=== PATIENT | male | born 1960 | race Caucasian/White ===

== ENCOUNTER 2021-03-23 09:12 | Inpatient (IN) ==
--- NOTE | 2021-03-06 09:56 | PAT Medication Instructions ---
Medication Instructions Date of Service March 06, 2021 Home Medications ascorbic acid (vitamin C) [Vitamin C] 500 mg PO QAM calcium citrate-vitamin D3 [Calcium Citrate + D] 1 tab PO QAM cholecalciferol (vitamin D3) [Vitamin D3] 50 mcg PO QAM ibuprofen 200 mg PO Q6H PRN multivitamin 1 tab PO QAM saw palmetto 450 mg PO QAM vitamin B complex 1 cap PO QAM zinc 50 mg PO QAM ASK your surgeon for instructions ibuprofen 200 mg PO Q6H PRN STOP taking 2 weeks before surgery (or as soon as possible if surgery is within 2 weeks) saw palmetto 450 mg PO QAM DO NOT take the morning of surgery ascorbic acid (vitamin C) [Vitamin C] 500 mg PO QAM calcium citrate-vitamin D3 [Calcium Citrate + D] 1 tab PO QAM cholecalciferol (vitamin D3) [Vitamin D3] 50 mcg PO QAM multivitamin 1 tab PO QAM vitamin B complex 1 cap PO QAM zinc 50 mg PO QAM Other Notes If you have any questions please call us at [phone] or [phone] or [phone] or [phone]
--- NOTE | 2021-03-10 11:11 | Anesthesiology Consultation ---
Date of Service March 10, 2021 Assessment & Plan (1) Encounter for pre-operative examination: - COVID screening: Per assessment on 03/10: Travel screen negative, no known COVID-19 positive contacts or current COVID-19 related symptoms. Patient vaccinated. Surgeon arranging preop COVID testing. Awaiting results. - Positioning: Patient reports significant congestion when laying in prone position and requests caution with positioning and/or pre-op preventative management of congestion when/if possible. Chart Review Chart Review: Acceptable Risk for Surgery and Patient seen in Pre Admission Testing Teaching & Discussion Pre-Anesthesia Teaching/Discussion Notes: Instructed NPO after midnight before surgery,except medications with 15 cc of water. Medication instructions provided according to the PAT guidelines. History Surgery Operation Date: 03/23/21 07:45 Proposed Procedures p L4-L5 Decompression Fusion, Spinal Cord Monitoring - Lanre Hutchinson DO Height/Weight Height: 5 ft 10.5 in Weight: 112.1 kg Allergies Allergy/AdvReac Type Severity Reaction Status Date / Time amoxicillin Allergy Rash Verified 03/06/21 09:03 Iodinated Contrast Media Allergy Hives, Verified 03/06/21 12:07 nausea shellfish derived Allergy Hives, Verified 03/06/21 12:07 nausea Medications Home Medications Medication Instructions Recorded Confirmed Last Taken ascorbic acid (vitamin C) [Vitamin 500 mg PO QAM 03/06/21 03/06/21 Unknown C] calcium citrate-vitamin D3 1 tab PO QAM 03/06/21 03/06/21 Unknown [Calcium Citrate + D] cholecalciferol (vitamin D3) 50 mcg PO QAM 03/06/21 03/06/21 Unknown [Vitamin D3] ibuprofen 200 mg PO Q6H PRN 03/06/21 03/06/21 Unknown multivitamin 1 tab PO QAM 03/06/21 03/06/21 Unknown saw palmetto 450 mg PO QAM 03/06/21 03/06/21 Unknown vitamin B complex 1 cap PO QAM 03/06/21 03/06/21 Unknown zinc 50 mg PO QAM 03/06/21 03/06/21 Unknown Past Medical History Medical History Alternating constipation and diarrhea Borderline hyperlipidemia BPH (benign prostatic hyperplasia) DDD (degenerative disc disease) History of gastroesophageal reflux (GERD) "Resolved" following gastric bypass surgery History of vertigo Obesity Osteoarthritis Sleep apnea hx; S/P UPPP; no device Spinal stenosis Tinnitus Exercise / Class Metabolic Activity II 4-5 Yardwork/Stairs/Walk up hill Past Family History Family History Other No family history of adverse response to anesthesia Past Surgical History Surgical History History of cardiac catheterization 1998 > no stents/angioplasty History of carpal tunnel surgery R/L History of cholecystectomy History of colonoscopy History of esophagogastroduodenoscopy (EGD) History of gastric bypass History of lumbar surgery History of nasal surgery History of tonsillectomy History of uvulopalatopharyngoplasty Past Anesthesia History No Family Hx of Anesthesia Complications and Other ("slow to wake" remotely 25 years ago) History of PONV No Hx of PONV and Hx of Motion Sickness Social History Smoking Status: Never smoker Do You Dip or Chew Tobacco: No Hx Alcohol Use: Yes Alcohol type: beer alcohol intake frequency: a few times a month Hx Substance Use: No substance use type: does not use Review of Systems Patient denies chest pain, shortness of breath, dyspnea on exertion, fever, chills, cough, wheezing, palpitations. Physical Exam Vital Signs VITALS BP 132/80 P 56 TEMP 98.6 SP02 98%RA RESP 18 PHYSICAL Full cervical extension range of motion. Full TMJ range of motion. TMD 4 finger breaths Mallampati Score 3 Dentition: missing (molars) Lungs: clear throughout to auscultation Cardiac: regular rate and rhythm, no murmurs noted Spine: normal Carotid arteries: negative bruit Extremities: no edema Trimmed maldonado Lab Results Anesthesia Preop Results Results Anesthesia Widget: WBC 7.38 K/uL (4.8-10.8) 03/10/21 Hgb 15.6 g/dL (14.0-18.0) 03/10/21 Hct 45.5 % (42-52) 03/10/21 Plt 245 K/uL (130-400) 03/10/21 Na 139 mmol/L (136-145) 03/10/21 K 4.6 mmol/L (3.5-5.1) 03/10/21 Cl 107 mmol/L (98-107) 03/10/21 CO2 29 mmol/L (21-32) 03/10/21 BUN 13 mg/dl (7-18) 03/10/21 Creat 0.93 mg/dl (0.6-1.4) 03/10/21 Glucose Level 91 mg/dl (70-99) 03/10/21 PT 10.3 Seconds (9.0-12.0) 03/10/21 PTT 23.9 Seconds (21.0-31.0) 03/10/21 INR 1.0 (0.9-1.1) 03/10/21 Urine Color Yellow 03/10/21 Urine Appearance Clear (Clear) 03/10/21 Urine pH 5.0 (4.5-7.5) 03/10/21 Urine Specific [place] 1.010 (1.000-1.030) 03/10/21 Urine Protein Negative (Negative) 03/10/21 Urine Glucose (UA) Negative (Negative) 03/10/21 Urine Ketones Negative (Negative) 03/10/21 Urine Blood Negative (Negative) 03/10/21 Urine Nitrite Negative (Negative) 03/10/21 Urine Bilirubin Negative (Negative) 03/10/21 Urine Urobilinogen Negative (Negative) 03/10/21 Urine Leukocyte Esterase Negative (Negative) 03/10/21 Blood Type O Positive 03/10/21 Antibody Screen NEGATIVE 03/10/21 Testing Electrocardiogram Date: 03/10/21 SB at 56bpm. Otherwise normal ECG. unconfirmed report. Chest X-Ray Date: 03/10/21 FINDINGS: Cardiac mediastinal and hilar silhouettes are within normal limits. No pneumothorax, pleural effusion, airspace consolidation or overt pulmonary edema. Surgical clips of the upper abdomen. The bones of the chest appear grossly intact. Degenerative changes are noted involving the shoulders. IMPRESSION: No acute process.
[~2021-03-23 09:12] MED LIST: ACETAMINOPHEN 500 MG TAB PO SCH; CLINDAMYCIN 600 MG/54 ML BAG IV SCH; CeleBREX 200 MG CAP PO SCH; GABAPENTIN 600 MG DOSE PO SCH; LR 15ML/HR IV SCH
[2021-03-23] MEDS ORDERED: MIDAZOLAM HCL 1 MG/ML 2ML VIAL ONE (10:28)
[2021-03-23] MEDS ORDERED: fentaNYL citrate 100 MCG/2 ML VIAL ONE (10:28)
--- NOTE | 2021-03-23 10:42 | History & Physical Bridge Note ---
Date of Service March 23, 2021 History & Physical Bridge Note I have examined the patient, reviewed the History & Physical and in the interval since the performance of the History & Physical I have noted the following changes of clinical significance: no changes noted
--- NOTE | 2021-03-23 10:43 | History & Physical Report ---
Date of Service March 23, 2021 Assessment & Plan (1) Neurogenic claudication due to lumbar spinal stenosis: Plan: L4-5 decompression fusion History of Present Illness Chief Complaint: Back and leg pain Primary Care Provider: Lance Hinton MD This is a 60-year-old male who presents with chronic persistent back and leg pain. After failing course of nonoperative care is here for surgical invention. Allergies Allergy/AdvReac Type Severity Reaction Status Date / Time amoxicillin Allergy Rash Verified 03/23/21 09:31 Iodinated Contrast Media Allergy Hives, Verified 03/23/21 09:31 nausea shellfish derived Allergy Hives, Verified 03/23/21 09:31 nausea Home Medications Medication Instructions Recorded Confirmed Type ascorbic acid (vitamin C) 500 mg 500 mg PO QAM 03/06/21 03/23/21 History chewable tablet (Vitamin C) calcium citrate 315 mg-vitamin D3 1 tab PO QAM 03/06/21 03/23/21 History 5 mcg (200 unit) tablet (Calcium Citrate + D) cholecalciferol (vitamin D3) 50 50 mcg PO QAM 03/06/21 03/23/21 History mcg (2,000 unit) capsule (Vitamin D3) ibuprofen 200 mg tablet 200 mg PO Q6H PRN 03/06/21 03/23/21 History multivitamin 1 tab PO QAM 03/06/21 03/23/21 History saw palmetto 450 mg capsule 450 mg PO QAM 03/06/21 03/23/21 History vitamin B complex 1 cap PO QAM 03/06/21 03/23/21 History zinc 50 mg tablet 50 mg PO QAM 03/06/21 03/23/21 History Past Med/Surg History Medical History Alternating constipation and diarrhea Borderline hyperlipidemia BPH (benign prostatic hyperplasia) DDD (degenerative disc disease) History of gastroesophageal reflux (GERD) "Resolved" following gastric bypass surgery History of vertigo Obesity Osteoarthritis Sleep apnea hx; S/P UPPP; no device Spinal stenosis Tinnitus Surgical History History of cardiac catheterization 1998 > no stents/angioplasty History of carpal tunnel surgery R/L History of cholecystectomy History of colonoscopy History of esophagogastroduodenoscopy (EGD) History of gastric bypass History of lumbar surgery History of nasal surgery History of tonsillectomy History of uvulopalatopharyngoplasty Family History Other No family history of adverse response to anesthesia Social History Smoking Status: Never smoker Second Hand Exposure: No; Do You Dip or Chew Tobacco: No; Hx Alcohol Use: Yes Alcohol type: beer Hx Substance Use: No Preferred Language: Eritrean Communication Ability: Effective Comptometrist Required: No Beliefs That Will Affect Care: None Current Living Situation: Spouse Feels Safe at Home: Yes Safety Concerns: Feels Safe At This Time Assistive Devices: Glasses Physical Exam Physical Exam: Patient is alert and oriented Heart regular rhythm Lungs clear to auscultation Results & Data ([facility]) Vital Signs (Past 12 Hours) Vital Signs Temp Pulse Resp BP Pulse Ox 03/23/21 09:38 36.9 C 69 18 150/85 H 95
[2021-03-23] MEDS ORDERED: BUPIVACAINE/EPINEPHRINE 0.5% MPF 1:200,000 30 ML VIAL ONE (10:51)
[2021-03-23] MEDS ORDERED: ePHEDrine sulfate 50 MG/ML AMP IV PRN (11:31)
[2021-03-23] MEDS ORDERED: ONDANSETRON INJ 2 MG/ML 2 ML VIAL IV PRN ×2 (11:31→16:17)
[2021-03-23] MEDS ORDERED: ATROPINE SULFATE 0.1 MG/ML 10ML SYR IV PRN (11:31)
[2021-03-23] MEDS ORDERED: fentaNYL citrate 100 MCG/2 ML VIAL IV PRN (11:31)
[2021-03-23] MEDS ORDERED: PROPOFOL IV EMULSION 10 MG/ML 20 ML VIAL IV ONE (11:45)
[2021-03-23] MEDS ORDERED: ePHEDrine sulfate 50 MG/ML SYR ONE (11:46)
[2021-03-23] MEDS ORDERED: LIDOCAINE 2% 2 ML VIAL/AMP(20MG/ML) INFIL ONE (11:46)
[2021-03-23] MEDS ORDERED: ONDANSETRON INJ 2 MG/ML 2 ML VIAL ONE (11:46)
[2021-03-23] MEDS ORDERED: ROCURONIUM BROMIDE 10 MG/ML 5 ML VIAL IV ONE ×2 (11:46→12:16)
[2021-03-23] MEDS ORDERED: DEXAMETHASONE SOD INJ 4 MG/ML VIAL ONE (11:46)
[2021-03-23] MEDS ORDERED: FLOSEAL HEMOSTATIC MATRIX 10ML TOP ONE (11:59)
[2021-03-23] MEDS ORDERED: HYDROmorphone INJ 2 MG/ML SYR/VIAL ONE (12:24)
--- NOTE | 2021-03-23 12:49 | Operative Report ---
Post Operative Report Pre & Post Diagnosis Operation Date: 03/23/21 11:05 Pre-Op Diagnosis: Spinal Stenosis, Lumbar Region with Neurogenic Claudication Post-Op Diagnosis: Spinal Stenosis, Lumbar Region with Neurogenic Claudication I identified the patient and participated in the time-out.: Yes Procedure Operation Date: 03/23/21 11:05 Actual Procedures #1 lumbar compression with bilateral medial facetectomies and foraminotomies L3- 4 and L4-5. #2 posterior spinal fusion L4-L5. #3 placed posterior instrumentation L4-5. #4 interbody fusion L4-5. #5 placement peek cage 13 x 26 mm at L4-5. #6 placement locally harvested morselized autograft in the posterior lateral gutters. #7 placement of I factor combined with the Vitoss interbody space and posterior lateral gutters. Surgeon Lanre Hutchinson, DO Product Applications Scientist Gladys Jimenez Estimated Blood Loss 100 Findings See Below The patient is 5 foot 10 inches tall weighing over 112 kg with a BMI 35. Patient's body habitus did contribute to significant technical difficulty requiring her deepest retractors longus instruments in order to perform his procedure. This had at least 25% increase to the operative time. Specimens None Indications This is a 60-year-old male who presents above-mentioned diagnosis after failing course of nonoperative care is here for the above-mentioned procedure. Description of Procedure Patient was met with identified informed consent obtained. Patient was then taken to the operative suite underwent a patient placed in a prone position the Trinity abdominal spine frame. All bony prominences well-padded eyes inspected to ensure no external pressure placed upon the. This point the lumbar spine was prepped and draped in a sterile fashion. Sharp dissection with the assistance of Bovie cautery from down to and exposing the lamina and transverse processes of L4 and L5 bilaterally. From caudal cephalad fashion complete laminectomy L4 partial laminectomy L3 is performed including bilateral medial facetectomies and foraminotomies addressing severe spinal stenosis. Pedicle screws were placed in L4-L5 bilaterally with assistance of fluoroscopy and process homer placed. Bilateral transforamen approach on right a complete discectomy was performed endplates curetted to subcortical bleeding bone and a 13 x 26 mm peek cage filled with I factor tapped in position. The rods were then locked in final position bilaterally. The transverse processes of L4-5 burred to subcortically bone. I factor combined with Vitoss placed in the posterior gutters with locally harvested morselized autograft. 15 round GAB drain inserted. The incision was then closed with 1 Vicryl fascia 2-0 Vicryl subcutaneously and 4 Monocryl for final skin closure. Steri-Strip sterile dressings placed. Patient will continue PACU stable condition. Please note spinal cord monitoring was utilized at the procedure no changes noted. Lastly Gladys Jimenez was present at the entire procedure and all the patient positioning complex portions of the surgery and final skin closure. I attest to the content of the Intraoperative Record and any orders documented therein. Any exceptions are noted below.
--- NOTE | 2021-03-23 13:00 | Fluoroscopy Report ---
FL lumbar spine 2-3V CLINICAL HISTORY: L4-L5 DECOMPRESSION AND FUSION COMPARISON STUDY: None. FLUOROSCOPY TIME: 17 seconds. FLUOROSCOPIC IMAGES: 2 FINDINGS: Fluoroscopy was provided during L4-L5 discectomy, posterior decompression bilateral pedicle screw fusion. Hardware is intact. There are no unexpected radiopaque foreign bodies. IMPRESSION: Fluoroscopy provided during L4-L5 discectomy, posterior decompression and bilateral pedi malia screw fusion. ACT 112: Negative or not required by law. Electronically signed by: Dionicio Corona M.D. 03/23/2021 12:59 PM
--- NOTE | 2021-03-23 14:12 | Anesthesiology Progress Note ---
Date of Service March 23, 2021 Anesthesia Post Procedure Vital Signs Vital Signs: Temp Pulse Pulse Resp BP Pulse Ox 03/23/21 14:00 61 12 136/74 98 03/23/21 13:45 71 12 148/80 H 96 03/23/21 13:40 36.7 C 61 16 147/81 H 97 03/23/21 13:30 74 19 157/93 H 99 03/23/21 13:20 75 15 150/79 H 99 03/23/21 13:10 63 12 142/72 H 100 03/23/21 13:01 36.7 C 81 16 136/81 99 03/23/21 09:38 36.9 C 69 18 150/85 H 95 Pain Intensity Lower Back: Pain Intensity: 5 Transfer of Care Handoff Completed per policy Notes Mental Status: alert / awake / arousable and participated in evaluation Patient Amnestic to Procedure: Yes Nausea / Vomiting: adequately controlled Pain: adequately controlled Airway Patency, RR, SpO2: stable & adequate BP & HR: stable & adequate Hydration State: stable & adequate Anesthetic Complications: no major complications apparent and Pt Satisfied with anesthetic care
[2021-03-23] MEDS ORDERED: DO NOT ADMINISTER PNEUMOCOCCAL VACCINE PRN (16:17)
[2021-03-23] MEDS ORDERED: LORazepam 0.5 MG TAB PO PRN (16:17)
[2021-03-23] MEDS ORDERED: traMADol HCL 50 MG TABLET PO PRN (16:17)
[2021-03-23] MEDS ORDERED: ACETAMINOPHEN 1,000 MG/100 ML VIAL IV PRN (16:17)
[2021-03-23] MEDS ORDERED: hydrOXYzine HCl 25 MG TAB PO PRN (16:17)
[2021-03-23] MEDS ORDERED: HYDROmorphone INJ 0.5 MG/0.5 ML SYR IV PRN (16:17)
[2021-03-23] MEDS ORDERED: ALUMINUM/MAGNESIUM SUSP 30 ML UDC PO PRN (16:17)
[2021-03-23] MEDS ORDERED: NALOXONE HCL 0.4 MG/1 ML VIAL/CARP IV PRN (16:17)
[2021-03-23] MEDS ORDERED: MAGNESIUM HYDROXIDE SUSP 30 ML UDC PO PRN (16:17)
[2021-03-23] MEDS ORDERED: ONDANSETRON 4 MG OD TAB PO PRN (16:17)
[2021-03-23] MEDS ORDERED: PROMETHAZINE HCL 12.5 MG in SODIUM CHLORIDE 0.9% 50 ML IV PRN (16:17)
[2021-03-23] MEDS ORDERED: FAMOTIDINE 20 MG TAB PO PRN (16:17)
[2021-03-23] MEDS ORDERED: oxyCODONE HCL IR 5 MG TAB (IMMEDIATE RELEASE) PO PRN (16:17)
[2021-03-23] MEDS ORDERED: SOD PHOSPHATE/SOD BIPHOSPHATE ENEMA 132 ML BTL PR PRN (16:17)
[2021-03-23] MEDS ORDERED: METOCLOPRAMIDE HCL INJ 5 MG/ML 2 ML VIAL IV PRN (16:17)
[2021-03-23] MEDS ORDERED: diphenhydrAMINE Capsule 25 MG CAP PO PRN (16:17)
[2021-03-23] MEDS ORDERED: HYDROmorphone INJ 1 MG/ML SYRINGE IV PRN (16:17)
[2021-03-23] MEDS ORDERED: LORazepam 0.5 MG/1 ML VIAL IV PRN (16:17)
[2021-03-23] MEDS ORDERED: DO NOT ADMINISTER FLU VACCINE PRN (16:17)
[2021-03-23] MEDS: LACTATED RINGER'S 1,000 ML IV SCH ×2 (16:53→23:43)
--- NOTE | 2021-03-23 17:04 | Internal Medicine Consult Note ---
Date of Consultation March 23, 2021 Assessment & Plan (1) Neurogenic claudication due to lumbar spinal stenosis: (2) Lumbosacral radiculopathy at L5: (3) History of obstructive sleep apnea: (4) History of gastroesophageal reflux (GERD): (5) History of obesity: Resume Post Op Care per Surgery Protocol Incentive Spirometry 10x per Hour Resume Relative Home Meds Where Appropriate PT/OT with appropriate fall precautions Transition from IV to PO Pain control DVT Prophylaxis Per Surgery Protocol Monitor Daily Labs History of Present Illness Reason for Consultation: Medical management Requesting Physician: Dr. Iván Hutchinson Attending Physician: Lanre Hutchinson, DO History of Present Illness 60-year-old male with a past medical history of Gastrosoft reflux disease, obstructive sleep apnea, obesity, and spinal stenosis started seeing Dr. Hutchinson about a year ago for low back pain. Some of the back pain was jabbing sometimes it would run down his leg and occasionally run down the right side of his right leg and into the back of his knee and sometimes down into his toes and into his foot. More recently has been getting really severe numbness and pain in his right foot and down the right side of his leg. He saw Dr. Hutchinson who recommended shots his family practice patient got an MRI and Dr. Hutchinson took him to the OR today. Patient had lumbar stenosis with neurogenic claudication and Dr. Hutchinson performed #1 lumbar compression with bilateral medial facetectomies and foraminotomies L3-4 and L4-5. #2 posterior spinal fusion L4-L5. #3 placed posterior instrumentation L4-5. #4 interbody fusion L4-5. #5 placement peek cage 13 x 26 mm at L4-5. #6 placement locally harvested morselized autograft in the posterior lateral gutters. #7 placement of I factor combined with the Vitoss interbody space and posterior lateral gutters. I saw the patient in his room he was resting comfortably pain-free. Allergies Allergy/AdvReac Type Severity Reaction Status Date / Time amoxicillin Allergy Rash Verified 03/23/21 09:31 Iodinated Contrast Media Allergy Hives, Verified 03/23/21 09:31 nausea shellfish derived Allergy Hives, Verified 03/23/21 09:31 nausea Home Medications Medication Instructions Recorded Confirmed Type ascorbic acid (vitamin C) 500 mg 500 mg PO QAM 03/06/21 03/23/21 History chewable tablet (Vitamin C) calcium citrate 315 mg-vitamin D3 1 tab PO QAM 03/06/21 03/23/21 History 5 mcg (200 unit) tablet (Calcium Citrate + D) cholecalciferol (vitamin D3) 50 50 mcg PO QAM 03/06/21 03/23/21 History mcg (2,000 unit) capsule (Vitamin D3) ibuprofen 200 mg tablet 200 mg PO Q6H PRN 03/06/21 03/23/21 History multivitamin 1 tab PO QAM 03/06/21 03/23/21 History saw palmetto 450 mg capsule 450 mg PO QAM 03/06/21 03/23/21 History vitamin B complex 1 cap PO QAM 03/06/21 03/23/21 History zinc 50 mg tablet 50 mg PO QAM 03/06/21 03/23/21 History Patient History Medical History Alternating constipation and diarrhea Borderline hyperlipidemia BPH (benign prostatic hyperplasia) DDD (degenerative disc disease) History of gastroesophageal reflux (GERD) "Resolved" following gastric bypass surgery History of vertigo Obesity Osteoarthritis Sleep apnea hx; S/P UPPP; no device Spinal stenosis Tinnitus Surgical History History of cardiac catheterization 1998 > no stents/angioplasty History of carpal tunnel surgery R/L History of cholecystectomy History of colonoscopy History of esophagogastroduodenoscopy (EGD) History of gastric bypass History of lumbar surgery History of nasal surgery History of tonsillectomy History of uvulopalatopharyngoplasty Family History Other No family history of adverse response to anesthesia Social History Smoking Status: Never smoker Second Hand Exposure: No; Do You Dip or Chew Tobacco: No; Hx Alcohol Use: Yes Alcohol type: beer Hx Substance Use: No Preferred Language: Malagasy Communication Ability: Effective Mink Slicer Required: No Beliefs That Will Affect Care: None Current Living Situation: Spouse Feels Safe at Home: Yes Safety Concerns: Feels Safe At This Time Assistive Devices: Glasses Review of Systems Review of Systems: ROS-No Headache, No Visual Changes, No Nausea, No Vomiting, No Fever, No Chills, No Neck Pain or Stiffness, No Chest Pain, No Palpitations, No SOB, No TAYLOR, No Cough, No Sputum, No Wheezing, No Abdominal Pain, No Diarrhea, No Hematemesis, No Hemoptysis, No Unexpected Weight Loss, No Flank pain, No Melena, No Hematochezia, No Frequency, No Urgency, No Burning, No Hematuria, No Rashes, No Diaphoresis. Appetite is Normal Physical Exam Physical Exam: Physical Exam Gen-AAO x 3, NAD, Afebrile Head-NCAT, EOMI, PERRLA, Anicteric Sclera, No Posterior Pharyngeal Erythema Neck-Supple, No JVD, No Thyromegaly, No Masses, No LAD, No Bruits Lungs-Clear to Auscultation Bilaterally, No Rales, No Rhonchi, No Wheezing, No Crepitus Chest-No S4, +S1, +S2, No S3, No Murmurs, No Rubs, No Gallops, No Ectopy Abdomen-Soft, Bowel Sounds Present, Non Tender, Non Distended, No Hepatomegaly, No Splenomegaly, No Palpable Masses, No Rebound, No Rigidity, No Guarding Musculoskeletal-Full Range of Motion Bilaterally, No CVAT Extremities-No Cyanosis, No Clubbing, No Edema Nuero-Cranial Nerves II-XII grossly intact, Motor WNL, DTRs WNL, Strength WNL, Non Focal Psych-Normal Mood Results & Data ([facility]) Vital Signs (Past 12 Hours) Vital Signs Temp Pulse Pulse Resp BP BP Pulse Ox 03/23/21 16:19 73 18 128/72 98 03/23/21 15:45 36.5 C 77 18 128/73 99 03/23/21 15:15 36.5 C 72 18 130/77 99 03/23/21 15:00 37.2 C 74 20 128/76 98 03/23/21 14:45 57 L 14 132/85 99 03/23/21 14:30 62 12 146/77 H 99 03/23/21 14:15 72 20 157/99 H 100 03/23/21 14:00 61 12 136/74 98 03/23/21 13:45 71 12 148/80 H 96 03/23/21 13:40 36.7 C 61 16 147/81 H 97 03/23/21 13:30 74 19 157/93 H 99 03/23/21 13:20 75 15 150/79 H 99 03/23/21 13:10 63 12 142/72 H 100 03/23/21 13:01 36.7 C 81 16 136/81 99 03/23/21 09:38 36.9 C 69 18 150/85 H 95 Laboratory Results Pending Current Diagnoses Spinal stenosis, lumbar region with neurogenic claudication (03/23/21) Encounter for other preprocedural examination (03/23/21) Allergies amoxicillin Allergy (Verified 03/23/21 09:31) Rash Iodinated Contrast Media Allergy (Verified 03/23/21 09:31) Hives, nausea shellfish derived Allergy (Verified 03/23/21 09:31) Hives, nausea Height/Weight/Isolation Height 5 ft 10.5 in Weight 112.1 kg
[2021-03-23] MEDS: CLINDAMYCIN 600 MG in DEXTROSE 5% 50 ML IV SCH (18:00)
[2021-03-23] MEDS: KETOROLAC TROMETHAMINE 15 MG/ML VIAL IV SCH ×2 (18:01→23:43)
[2021-03-23] MEDS: DOCUSATE SODIUM/SENNA 50/8.6MG TAB PO SCH (21:54)
[2021-03-24] MEDS: CLINDAMYCIN 600 MG in DEXTROSE 5% 50 ML IV SCH (04:05)
[2021-03-24] MEDS: POLYETHYLENE (MIRALAX) 17 GM PACK PO SCH ×2 (05:05→13:06)
[2021-03-24] MEDS: KETOROLAC TROMETHAMINE 15 MG/ML VIAL IV SCH ×2 (05:06→13:06)
[2021-03-24 06:56] LABS: Eosinophils # (auto) 0.05 K/uL (0-0.5); Eosinophils % (auto) 0.4 %; Hematocrit (blood only) 38.3 % (42-52); Hemoglobin 13.3 g/dL (14.0-18.0); Immature Granulocytes # (auto) 0.03 K/uL (0.00-0.02); Immature Granulocytes % (auto) 0.2 %; Lymphocytes % (auto) 9.2 %; Mean Corpuscular Hemoglobin 31.7 pg (25-34); Mean Corpuscular Hgb Conc 34.7 g/dL (32-36); Mean Corpuscular Volume 91.2 fL (80-100); Mean Platelet Volume 9.1 fL (7.4-10.4); Monocytes # (auto) 1.16 K/uL (0.11-0.59); Monocytes % (auto) 8.9 %; Neutrophils # (auto) 10.59 K/uL (1.4-6.5); Neutrophils % (auto) 81.3 %; Platelet Count 199 K/uL (130-400); RDW Coefficient of Variation 12.4 % (11.5-14.5); RDW Standard Deviation 41.8 fL (36.4-46.3); White Blood Count 13.03 K/uL (4.8-10.8)
[2021-03-24 07:27] LABS: BUN Creatinine Ratio 22.5 (10-20); Calcium 8.1 mg/dl (8.5-10.1); Creatinine Clr Calc Pharmacy 142.1 ml/min; Est GFR (African American) 118.8 ml/min; Est GFR (Non-African American) 102.5 ml/min; Potassium 3.9 mmol/L (3.5-5.1)
--- NOTE | 2021-03-24 09:29 | Orthopedic Progress Note ---
Date of Service March 24, 2021 Assessment & Plan (1) Neurogenic claudication due to lumbar spinal stenosis: Plan: At this time continue physical therapy monitor his GAB operatively discharge home the next day or so. Admission and Anticipated Discharge Date Admission Date: March 23, 2021 Subjective Back pain controlled leg pain improved Physical Exam Physical Exam: Patient appears comfortable is good strength testing. Results & Data ([facility]) Vital Signs (Past 12 Hours) Vital Signs Temp Pulse Resp BP BP Pulse Ox 03/24/21 07:19 36.5 C 79 17 100/64 100/64 98 03/24/21 02:27 36.6 C 70 16 108/69 97 03/23/21 22:38 36.6 C 64 16 108/67 96
[2021-03-24] MEDS: CHOLECALCIFEROL 1,000 UNITS 25 MCG TAB PO SCH (10:35)
[2021-03-24] MEDS: VITAMIN B COMPLEX TAB PO SCH (10:35)
[2021-03-24] MEDS: ZINC SULFATE 220 MG CAPSULE PO SCH (10:35)
[2021-03-24] MEDS: MULTIVITAMIN TAB PO SCH (10:35)
[2021-03-24] MEDS: CALCIUM 600MG + VIT D 400 IU TAB PO SCH (10:36)
--- NOTE | 2021-03-24 11:31 | Hospitalist Progress Note ---
Date of Service March 24, 2021 Assessment & Plan (1) Neurogenic claudication due to lumbar spinal stenosis: (2) Lumbosacral radiculopathy at L5: (3) Postoperative anemia due to acute blood loss: (4) History of obstructive sleep apnea: (5) History of gastroesophageal reflux (GERD): (6) History of obesity: Plan: Resume Post Op Care per Surgery Protocol Incentive Spirometry 10x per Hour Resume Relative Home Meds Where Appropriate PT/OT Transition to PO Pain control DVT Prophylaxis Per Surgery Protocol Monitor Daily Labs Admission and Anticipated Discharge Date Admission Date: March 23, 2021 Review of Systems Review of Systems: ROS-No Headache, No Visual Changes, No Nausea, No Vomiting, No Fever, No Chills, No Neck Pain or Stiffness, No Chest Pain, No Palpitations, No SOB, No TAYLOR, No Cough, No Sputum, No Wheezing, No Abdominal Pain, No Diarrhea, No Hematemesis, No Hemoptysis, No Unexpected Weight Loss, No Flank pain, No Melena, No Hematochezia, No Frequency, No Urgency, No Burning, No Hematuria, No Rashes, No Diaphoresis. Appetite is Normal Physical Exam Physical Exam: Physical Exam Gen-AAO x 3, NAD, Afebrile Head-NCAT, EOMI, PERRLA, Anicteric Sclera, No Posterior Pharyngeal Erythema Neck-Supple, No JVD, No Thyromegaly, No Masses, No LAD, No Bruits Lungs-Clear to Auscultation Bilaterally, No Rales, No Rhonchi, No Wheezing, No Crepitus Chest-No S4, +S1, +S2, No S3, No Murmurs, No Rubs, No Gallops, No Ectopy Abdomen-Soft, Bowel Sounds Present, Non Tender, Non Distended, No Hepatomegaly, No Splenomegaly, No Palpable Masses, No Rebound, No Rigidity, No Guarding Musculoskeletal-Full Range of Motion Bilaterally, No CVAT Extremities-No Cyanosis, No Clubbing, No Edema Nuero-Cranial Nerves II-XII grossly intact, Motor WNL, DTRs WNL, Strength WNL, Non Focal Psych-Normal Mood Results & Data Results & Data ([facility]) Vital Signs (Past 12 Hours) Vital Signs Temp Pulse Pulse Resp BP BP Pulse Ox 03/24/21 10:48 36.5 C 80 16 126/67 03/24/21 07:19 36.5 C 79 17 100/64 100/64 98 03/24/21 02:27 36.6 C 70 16 108/69 97
[2021-03-24] MEDS: DOCUSATE SODIUM/SENNA 50/8.6MG TAB PO SCH (17:59)
[2021-03-24 23:01] VITALS: O2SAT 97
[2021-03-24] MEDS: ACETAMINOPHEN 500 MG TAB PO PRN (23:03)
[2021-03-25] MEDS: POLYETHYLENE (MIRALAX) 17 GM PACK PO SCH ×3 (02:24→06:17)
[2021-03-25 07:25] LABS: Hematocrit (blood only) 37.9 % (42-52); Hemoglobin 12.9 g/dL (14.0-18.0); Mean Corpuscular Hemoglobin 31.3 pg (25-34); Mean Platelet Volume 9.3 fL (7.4-10.4); Platelet Count 203 K/uL (130-400); RDW Coefficient of Variation 12.4 % (11.5-14.5); RDW Standard Deviation 42.4 fL (36.4-46.3); Red Blood Count 4.12 M/uL (4.7-6.1); White Blood Count 8.21 K/uL (4.8-10.8)
[2021-03-25 07:28] VITALS: BP 122/72; TEMP 98.8
[2021-03-25] MEDS ORDERED: bisacodyL 10 MG SUPP PR PRN (08:00)
[2021-03-25 08:01] LABS: BUN Creatinine Ratio 13.8 (10-20); Calcium 8.5 mg/dl (8.5-10.1); Creatinine Clr Calc Pharmacy 110.1 ml/min; Est GFR (Non-African American) 92.3 ml/min; Potassium 3.8 mmol/L (3.5-5.1)
[2021-03-25] MEDS ORDERED: dexAMETHasone 8 MG in SYRINGE 0 ML IV SCH (09:00)
[2021-03-25] MEDS: VITAMIN B COMPLEX TAB PO SCH (09:17)
[2021-03-25] MEDS: ZINC SULFATE 220 MG CAPSULE PO SCH (09:17)
[2021-03-25] MEDS: CALCIUM 600MG + VIT D 400 IU TAB PO SCH (09:17)
[2021-03-25] MEDS: MULTIVITAMIN TAB PO SCH (09:17)
[2021-03-25] MEDS: CHOLECALCIFEROL 1,000 UNITS 25 MCG TAB PO SCH (09:17)
[2021-03-25 10:16] VITALS: PULSE 80
--- NOTE | 2021-03-25 10:20 | Discharge Summary ---
Date of Service March 25, 2021 Admission HPI Per Admitting Provider This is a 60-year-old male who presents with chronic persistent back and leg pain. After failing course of nonoperative care is here for surgical invention. Principal Diagnosis Lumbar spinal stenosis with neurogenic claudication Discharge Data Allergies Allergy/AdvReac Type Severity Reaction Status Date / Time amoxicillin Allergy Rash Verified 03/23/21 09:31 Iodinated Contrast Media Allergy Hives, Verified 03/23/21 09:31 nausea shellfish derived Allergy Hives, Verified 03/23/21 09:31 nausea Consultations 03/23/21 16:17 Consult Hospitalist Routine Procedures Performed Operation Date: 03/23/21 11:05 Actual Procedures p L4-L5 Decompression Fusion, Spinal Cord Monitoring - Lanre Hutchinson DO Ordered Studies 03/23/21 11:05 [place] lumbar spine 2-3V Routine Hospital Course (1) Neurogenic claudication due to lumbar spinal stenosis: Patient with lumbar decompression fusion trial as well as leg orthopedic for postop labor postop day 1 is up ambulating with postop day #2 pain is well controlled excellent strength testing GAB drain decreasing appropriately. Subsequent discharge home. Discharge orders instructions found in chart for further view. Total Time Total Time Spent Total Time Spent (In Minutes): 20 minutes Discharge Plan Discharge Items Patient Disposition: Home - Self-Care Reason For Visit: Spinal Stenosis, Lumbar Region with Neurogenic Cla Discharge Diagnosis: Lumbar spinal stenosis with neurogenic claudication Activity: As commented below Non-emergency contact: Primary Care Provider Call non-emergency contact if: you have any medication questions Follow-up/Referrals: Lance Hinton MD [Primary Care Provider] - Diet: Regular Addtl Attending Provider Instructions: ACTIVITY RECOMMENDATIONS: SELF CARE INSTRUCTIONS AFTER THORACIC/LUMBAR FUSIONS 1. You may walk to your tolerance. It is good exercise for your legs and back. Expect some back and intermittent leg aches and pains. 2. You may perform "counter-top" level activities (make a sandwich, chris with a project, etc.). 3. No bending or lifting of more than 10 pounds or back twisting of any nature (roll like a log when turning in bed). 4. You may ride in a car for 20-30 minutes at a time. No driving until after your first visit with your doctor. 5. Frequent changes of position and restricting sitting to 30 minutes at a time will help limit the amount of back spasms and stiffness you may experience. 6. You may discontinue the use of ambulatory aids (cane, crutches, etc.) once your strength and confidence allow. 7. You may product safety and standards engineer the shower and let water strike your incision when you arrive home at least once daily. Do not take a tub bath, sit in a hot tub or go into a swimming pool until after your first recheck in the office. SPECIAL CARE INSTRUCTIONS: VERY IMPORTANT TO READ AND REVIEW A. Your surgical incision has been closed with a cosmetic suture under the skin that will dissolve in about 6 weeks. In 14 days, you can use a pair of clean scissors and cut the suture that is left outside of the skin at the ends of your incision. 1. The small skin tapes can be removed 7 days after surgery if they have not fallen off by that point. 2. You may keep the wound open to air as much as possible to promote healing after post-op day number 5 unless told otherwise by your doctor. 3. If you think the wound looks like it is becoming infected (redness or worsening drainage) and/or you are experiencing fever, chill or worsening back pain and muscle spasms, contact the office so that we may evaluate you as soon as possible. B. Complications are uncommon, but please contact us if you have any signs or symptoms of: 1. wound infection (fever higher than 102.5 degrees F, redness, separation of wound, drainage, or increasing pain from the incision) 2. blood clots in legs (pain, swelling, redness and warmth in legs) 3. urinary tract infection (fever higher than 102.5 degrees F, burning upon urination or increased frequency of urination) 4. nerve problems (inability to walk on your toes or heels, numbness, loss of bowel or bladder control) 5. any other symptoms that concern you C. Please call the office at if you have any concerns or questions about your operation or recovery. D. No smoking! Smoking drastically decreases the chance of a solid fusion. E. Do not take any anti-inflammatory medications (Indocin, Advil, Motrin, Aspirin, Naprosyn, etc.) as these may inhibit the chance of a solid fusion. Tylenol is okay to take for pain. MANAGING PAIN AFTER SPINAL SURGERY 1. Narcotic medication is intended for short-term use and will be provided for surgical pain. Surgical pain usually lasts for a period of 4-6 weeks. Narcotic medication includes Percocet, Vicodin, Darvocet, Tylenol #3 or Lortab. 2. Longer-term pain is more appropriately treated with non-narcotic medication such as Tylenol ES. 3. Muscle spasm is not appropriately treated with narcotics. Muscle relaxers such as Soma, Flexeril or Skelaxin can be used along with Tylenol ES. 4. Remember that we all live with some "aches and pains". This is not unusual or uncommon after an injury or as we get older. a. Back pain is expected and may include muscle spasms for 4 to 6 weeks after surgery. The pain should gradually improve. If the pain worsens for no apparent reason, please contact the office. b. Intermittent leg pain may also be experienced and should not be concerned about unless it worsens for no apparent reason. If so, please contact the office. 5. We will provide appropriate medication within the normal guidelines of their prescribed use. We will also be very cautious and aware of potential abuse and extended duration of patients' medication needs. a. Pain medications are for your comfort and to assist with sleep and rest so that the tissue can heal. They are not provided in order to return to normal activity and should not be used through the day. To do so or worsening pain at night can result from ongoing tissue damage and development of tolerance to the prescribed medicine. 6. Please allow 2-3 days to process refills. Prescriptions will not be mailed but must be picked up at the office. FOLLOW UP VISIT: Keep your scheduled follow-up appointment. Any questions, please call the office at . Pending Studies at Discharge: No Stand-Alone Forms: [employer], Smoking Cessation Medications and DC Order Prescriptions: New oxycodone 5 mg tablet 5 mg PO Q6H PRN (Reason: pain, severe) Qty: 30 RF: 0 tramadol 50 mg tablet 50 mg PO Q6H PRN (Reason: pain, moderate) Qty: 30 RF: 0 Continued multivitamin Tablet 1 tab PO QAM RF: 0 ascorbic acid (vitamin C) [Vitamin C] 500 mg Tablet,Chewable 500 mg PO QAM RF: 0 zinc 50 mg Tablet 50 mg PO QAM RF: 0 vitamin B complex Capsule 1 cap PO QAM RF: 0 calcium citrate-vitamin D3 [Calcium Citrate + D] 315 mg-5 mcg (200 unit) Tablet 1 tab PO QAM RF: 0 saw palmetto 450 mg Capsule 450 mg PO QAM RF: 0 cholecalciferol (vitamin D3) [Vitamin D3] 50 mcg (2,000 unit) Capsule 50 mcg PO QAM RF: 0 Discontinued ibuprofen 200 mg Tablet 200 mg PO Q6H PRN (Reason: Pain) RF: 0 Discharge Orders: Discharge Order (Routine); Ordered 03/25/21 Ordered By: Lanre Hutchinson Admission Data Admit Date/Time: 03/23/21 12:52 Attending Provider: Lanre Hutchinson Admit Provider: Lanre Hutchinson Primary Care Provider: Lance Hinton Other Providers: Mariely Begum Other Interventions: Discharge Summary Assessment (RN) Last Done: 03/25/21 10:14
[2021-03-25] MEDS: ACETAMINOPHEN 500 MG TAB PO PRN (11:08)
== END 2021-03-25 11:55 | disposition home or self-care (01) | DRG 455 ==
LOC: ASU 09:12 → 3E 12:52